=== PATIENT | male | born 1965 | race Caucasian/White ===

== ENCOUNTER 2016-05-08 12:55 | Emergency (ER) | payer SELFPAY ==
[~2016-05-08] VITALS: Ht 172.7 cm; Wt 63.5 kg
[2016-05-08 13:00] VITALS: BP 108/61
== END 2016-05-08 23:23 | disposition left against medical advice (07) ==
LOC: EDBD 12:55 → ER 12:57
DX: S50.821A Blister (nonthermal) of right forearm, initial encounter (principal); R21 Rash and other nonspecific skin eruption; Z53.21 Procedure and treatment not carried out due to patient leaving prior to being seen by health care provider; X58.XXXA Exposure to other specified factors, initial encounter; Y93.9 Activity, unspecified; Y99.8 Other external cause status; Y92.89 Other specified places as the place of occurrence of the external cause

== ENCOUNTER 2022-04-28 01:44 | Inpatient (IN) | payer MEDICAID ==
[~2022-04-28] VITALS: Ht 175.3 cm; Wt 63.5 kg
[2022-04-28] MEDS ORDERED: OCTREOTIDE ACETATE 100 MCG in SODIUM CHL 0.9% 50 ML IV ONE (01:45)
[2022-04-28] MEDS ORDERED: SODIUM CHLORIDE 0.9% 1,000 ML IV ONE (01:45)
[2022-04-28] MEDS ORDERED: METOCLOPRAMIDE HCL 5MG/ml INJ 2ml VIAL IV ONE (01:45)
[2022-04-28] MEDS ORDERED: PANTOPRAZOLE 80 MG in SODIUM CHL 0.9% 100 ML IV ONE (01:45)
[2022-04-28] MEDS ORDERED: PANTOPRAZOLE 40mg/50ML NS AE 50 ML IV ONE (01:45)
[2022-04-28] MEDS ORDERED: ONDANSETRON HCL 4 MG/2 ML VIAL IV ONE (01:45)
[2022-04-28 02:33] LABS: Basophils # (auto) 0.1 10 ^3/uL (0-0.2); Basophils % (auto) 1.2 % (0.0-2.0); Eosinophils # (auto) 0.2 10 ^3/uL (0-0.8); Eosinophils % (auto) 2.6 % (0.0-7.0); Hematocrit 35.6 % (41.0-53.0); Hemoglobin 12.1 g/dL (13.5-17.5); Lymphocytes # (auto) 3.1 10 ^3/uL (0.4-5.4); Lymphocytes % (auto) 44.8 % (10.0-50.0); Mean Corpuscular Hemoglobin 30.9 pg (28.0-32.0); Monocytes % (auto) 14.2 % (0.0-12.0); Neutrophils # (auto) 2.6 10 ^3/uL (1.6-8.6); Neutrophils % (auto) 37.2 % (37.0-80.0); Red Blood Cells 3.92 10^6/uL (4.5-5.90); Red Cell Distribution Width 13.9 % (11.8-14.3); White Blood Cell 6.9 10^3/uL (4.4-10.8)
[2022-04-28] MEDS ORDERED: PANTOPRAZOLE 40 MG/10 ML VIAL INJ IV ONE (02:35)
[2022-04-28] MEDS ORDERED: OCTREOTIDE ACETATE 100 MCG/ML VL ONE (02:40)
[2022-04-28] MEDS ORDERED: OCTREOTIDE ACETATE 500 MCG/ML VL ONE (02:41)
[2022-04-28 02:51] LABS: Alanine Aminotransferase 90 U/L (16-61); Anion Gap 8 (5-15); Aspartate Aminotransferase 80 U/L (15-37); BUN/Creatinine Ratio 52.1; Blood Alcohol < 3.0 mg/dL (0-5); Blood Urea Nitrogen 38 mg/dL (7-18); Calcium 8.2 mg/dL (8.5-10.1); Carbon Dioxide 31 mmol/L (21-32); Chloride 98 mmol/L (98-107); GFR African American 143 mL/min; GFR Non-African American 119 mL/min; Glucose 98 mg/dL (74-106); Magnesium 1.7 mg/dL (1.6-2.6); Potassium 3.6 mmol/L (3.5-5.1); Sodium 137 mmol/L (136-145)
[2022-04-28 02:54] LABS: Alkaline Phosphatase 53 U/L (45-117); Bilirubin, Total 0.6 mg/dL (0.2-1.0); INR 1.02 (0.9-1.15); Partial Thromboplastin Time 24.9 sec (24.6-33.4); Total Protein 6.1 g/dL (6.4-8.2)
[2022-04-28] MEDS: OCTREOTIDE ACETATE 500 MCG in SODIUM CHL 0.9% 99 ML IV SCH ×2 (02:59→11:45)
[2022-04-28] MEDS ORDERED: IOHEXOL 350 MG/ML 100ML IJ ONE (03:14)
[2022-04-28] MEDS ORDERED: cefTRIAXone 1GM/50ML D5W 50 ML IV ONE (05:00)
[2022-04-28] MEDS ORDERED: SODIUM CHLORIDE 0.9% 1,000 ML IV SCH (05:45)
[2022-04-28] MEDS ORDERED: ACETAMINOPHEN 325 MG TAB PO PRN (05:45)
[2022-04-28] MEDS ORDERED: MORPHINE SULFATE INJ 2 MG/ml SYRG IV PRN (05:45)
[2022-04-28] MEDS ORDERED: TEMAZEPAM 15 MG CAP PO PRN (05:45)
[2022-04-28] MEDS ORDERED: MAALOX PLUS or MAALOX 30 ML PO PRN (05:45)
[2022-04-28] MEDS ORDERED: ONDANSETRON HCL 4 MG/2 ML VIAL IV PRN (05:45)
[2022-04-28] MEDS ORDERED: HYDROcodone-ACET 5/325MG TAB PO PRN (05:45)
[2022-04-28] MEDS ORDERED: DOCUSATE SOD 100 MG CAP PO PRN (05:45)
[2022-04-28] MEDS ORDERED: LORazepam 0.5 MG TAB PO PRN (05:45)
[2022-04-28 07:53] LABS: BUN/Creatinine Ratio 42.5; Potassium 3.9 mmol/L (3.5-5.1)
[2022-04-28 07:58] LABS: Basophils # (auto) 0.1 10 ^3/uL (0-0.2); Eosinophils # (auto) 0.1 10 ^3/uL (0-0.8); Eosinophils % (auto) 1.2 % (0.0-7.0); Hematocrit 33.9 % (41.0-53.0); Hemoglobin 11.7 g/dL (13.5-17.5); Lymphocytes # (auto) 3.1 10 ^3/uL (0.4-5.4); Lymphocytes % (auto) 39.1 % (10.0-50.0); Mean Corpuscular Hemoglobin 31.1 pg (28.0-32.0); Mean Corpuscular Hgb Conc. 34.4 g/dL (32.0-36.0); Mean Corpuscular Volume 90.3 fL (80.0-100.0); Monocytes # (auto) 0.7 10 ^3/uL (0-1.3); Monocytes % (auto) 9.2 % (0.0-12.0); Neutrophils # (auto) 3.9 10 ^3/uL (1.6-8.6); Neutrophils % (auto) 49.5 % (37.0-80.0); Nucleated Red Blood Cells % 0.1 %; Red Blood Cells 3.76 10^6/uL (4.5-5.90); Red Cell Distribution Width 13.8 % (11.8-14.3); White Blood Cell 7.9 10^3/uL (4.4-10.8)
[2022-04-28 09:02] LABS: Urine Bacteria NONE SEEN /hpf (None Seen); Urine Blood Negative /uL (Negative); Urine WBC <1 /hpf (0 - 3)
[2022-04-28 09:07] LABS: Urine Specific Gravity > 1.050 (1.001-1.035)
[2022-04-28] MEDS ORDERED: PANTOPRAZOLE 40 MG/10 ML VIAL INJ IV SCH (10:00)
[2022-04-28 10:30] VITALS: BP 126/88
[2022-04-29] MEDS ORDERED: cefTRIAXone 1GM/50ML D5W 50 ML IV SCH (06:00)
== END 2022-04-28 12:09 | disposition left against medical advice (07) | DRG 253 ==
LOC: EDBD 01:44 → ER 01:44 → EDUNIT# 01:44 → TELE 05:49
PROVIDERS: ADMIT Hospitalist; ATTEND Student in an Organized Health Care Education/Training Program
DX: K92.2 Gastrointestinal hemorrhage, unspecified (principal); B19.20 Unspecified viral hepatitis C without hepatic coma; D64.9 Anemia, unspecified; F17.210 Nicotine dependence, cigarettes, uncomplicated; Z53.29 Procedure and treatment not carried out because of patient's decision for other reasons; K21.9 Gastro-esophageal reflux disease without esophagitis; R00.0 Tachycardia, unspecified; R79.89 Other specified abnormal findings of blood chemistry; Z86.19 Personal history of other infectious and parasitic diseases
CPT/HCPCS: 36415; 71045; 71260; 74177; 80048; 80053; 80320; 81001; 83735; 84484; 85025; 85610; 85730; 86850; 86900; 86901; 93005; 96365; 96366; 96367; 96368; 96375; 99291; C9113; G0378; J0696; J2405

== ENCOUNTER 2023-10-22 09:36 | Emergency (ER) | payer MEDICAID ==
[~2023-10-22] VITALS: Ht 175.3 cm; Wt 72.7 kg
[2023-10-22 09:36] VITALS: O2SAT 98
[2023-10-22 10:04] VITALS: BP 140/78; PULSE 118; RESP 14; TEMP 97
[2023-10-22] MEDS ORDERED: BUPR8MIS SL (10:04)
== END 2023-10-22 10:12 | disposition home or self-care (01) ==
LOC: ER 09:36 → EDBD 09:36 → ER 10:12
DX: Z76.0 Encounter for issue of repeat prescription (principal); F17.210 Nicotine dependence, cigarettes, uncomplicated; F19.10 Other psychoactive substance abuse, uncomplicated

== ENCOUNTER 2023-10-23 17:28 | Inpatient (IN) | payer MEDICAID ==
[~2023-10-23] VITALS: Ht 175.3 cm; Wt 68.6 kg
[2023-10-23] MEDS: POTASSIUM CHL 20MEQ/100ML 100 ML IV SCH (05:45)
[~2023-10-23 17:28] MED LIST: BUPR8MIS SL
[2023-10-23 18:24] LABS: Basophils # (auto) 0 10 ^3/uL (0-0.2); Basophils % (auto) 0.4 % (0.0-2.0); Eosinophils # (auto) 0.1 10 ^3/uL (0-0.8); Eosinophils % (auto) 0.7 % (0.0-7.0); Hematocrit 44.3 % (41.0-53.0); Hemoglobin 15.3 g/dL (13.5-17.5); Lymphocytes # (auto) 2.6 10 ^3/uL (0.4-5.4); Lymphocytes % (auto) 28.7 % (10.0-50.0); Mean Corpuscular Hemoglobin 29.4 pg (28.0-32.0); Mean Corpuscular Hgb Conc. 34.4 g/dL (32.0-36.0); Mean Corpuscular Volume 85.3 fL (80.0-100.0); Monocytes # (auto) 0.9 10 ^3/uL (0-1.3); Monocytes % (auto) 10.2 % (0.0-12.0); Neutrophils # (auto) 5.5 10 ^3/uL (1.6-8.6); Nucleated Red Blood Cells % 0.2 %; Red Blood Cells 5.19 10^6/uL (4.5-5.90); Red Cell Distribution Width 14.8 % (11.8-14.3); White Blood Cell 9.2 10^3/uL (4.4-10.8)
[2023-10-23 18:41] LABS: Alanine Aminotransferase 31 U/L (7-40); Albumin 4.2 g/dL (3.2-4.8); Alkaline Phosphatase 145 U/L (46-116); Anion Gap 17 (5-15); Aspartate Aminotransferase 49 U/L (13-40); BUN/Creatinine Ratio 11.9 (10.0-20.0); Bilirubin, Total 1.3 mg/dL (0.2-1.0); Blood Urea Nitrogen 12 mg/dL (9-23); Carbon Dioxide 21 mmol/L (20-30); Chloride 103 mmol/L (98-107); Glucose 164 mg/dL (74-106); Sodium 141 mmol/L (136-145); Total Protein 7.2 g/dL (5.7-8.2)
[2023-10-23 18:51] LABS: Potassium 2.5 mmol/L (3.5-5.1)
[2023-10-23] MEDS: BUPRENORPHINE -NALOXONE 8-2mg SL TAB SL ONE ×2 (19:10→19:11)
[2023-10-23 19:11] VITALS: PULSE 127; RESP 26; O2SAT 98
[2023-10-23 19:34] LABS: Urine Bacteria None Seen /hpf (None Seen)
[2023-10-23 20:01] LABS: Urine Blood Negative /uL (Negative); Urine Clarity Clear (Clear); Urine Color Yellow (Yellow); Urine Protein, UAD TRACE (Negative); Urine Urobilinogen Normal (Negative); Urine WBC 1 /hpf (0 - 3)
[2023-10-23 20:04] VITALS: PULSE 127; RESP 26; O2SAT 98
[2023-10-23 20:06] LABS: Amphetamine Screen, Urine Pos (NEGATIVE); Barbiturate Scree,Urine Neg (NEGATIVE); Benzodiazephine Screen, Urine Neg (NEGATIVE); Cocaine Screen, Urine Neg (NEGATIVE); Opiate Scree,Urine Neg (NEGATIVE)
[2023-10-23 20:07] LABS: Cannabinoid Screen, Urine Neg (NEGATIVE); Phencyclidine Screen, Urine Neg (NEGATIVE)
[2023-10-23] MEDS ORDERED: DOCUSATE SOD 100 MG CAP PO PRN (21:30)
[2023-10-23] MEDS ORDERED: IBUPROFEN 600 MG TAB PO PRN (21:45)
[2023-10-23] MEDS: SODIUM CHLOR 0.9% PF (SALINE LOCK) 10ML VIAL/SYR IV SCH (22:00)
[2023-10-23 22:16] VITALS: PULSE 127; RESP 26; O2SAT 98
[2023-10-23] MEDS ORDERED: MORPHINE SULFATE INJ 2 MG/ml SYRG IV PRN (23:00)
[2023-10-23] MEDS ORDERED: NITROGLYCERIN 0.4 MG SL TAB SL PRN (23:00)
[2023-10-24] VITALS (12 sets, daily range): BP systolic 142–159; BP diastolic 86–102; PULSE 82–127; RESP 16–26; TEMP 97.6–98.3; O2SAT 94–100
[2023-10-24] MEDS: ONDANSETRON HCL 4 MG/2 ML VIAL IV PRN (02:37)
[2023-10-24] MEDS ORDERED: POM PO (02:50)
[2023-10-24 06:16] LABS: Basophils # (auto) 0 10 ^3/uL (0-0.2); Basophils % (auto) 0.1 % (0.0-2.0); Eosinophils # (auto) 0 10 ^3/uL (0-0.8); Eosinophils % (auto) 0.2 % (0.0-7.0); Hematocrit 41.4 % (41.0-53.0); Hemoglobin 13.9 g/dL (13.5-17.5); Lymphocytes # (auto) 1.6 10 ^3/uL (0.4-5.4); Lymphocytes % (auto) 13.4 % (10.0-50.0); Mean Corpuscular Hemoglobin 28.8 pg (28.0-32.0); Mean Corpuscular Hgb Conc. 33.5 g/dL (32.0-36.0); Mean Corpuscular Volume 86.1 fL (80.0-100.0); Monocytes # (auto) 0.8 10 ^3/uL (0-1.3); Monocytes % (auto) 6.7 % (0.0-12.0); Neutrophils # (auto) 9.2 10 ^3/uL (1.6-8.6); Neutrophils % (auto) 79.6 % (37.0-80.0); Nucleated Red Blood Cells % 0.1 %; Red Blood Cells 4.81 10^6/uL (4.5-5.90); Red Cell Distribution Width 14.8 % (11.8-14.3); White Blood Cell 11.6 10^3/uL (4.4-10.8)
[2023-10-24 06:45] LABS: Alanine Aminotransferase 30 U/L (7-40); Albumin 4.1 g/dL (3.2-4.8); Alkaline Phosphatase 138 U/L (46-116); Anion Gap 11 (5-15); Aspartate Aminotransferase 45 U/L (13-40); BUN/Creatinine Ratio 14.7 (10.0-20.0); Bilirubin, Total 1.3 mg/dL (0.2-1.0); Blood Urea Nitrogen 10 mg/dL (9-23); Calcium 8.4 mg/dL (8.5-10.1); Carbon Dioxide 28 mmol/L (20-30); Chloride 102 mmol/L (98-107); Glucose 112 mg/dL (74-106); Potassium 3.1 mmol/L (3.5-5.1); Sodium 141 mmol/L (136-145); Total Protein 6.9 g/dL (5.7-8.2)
[2023-10-24] MEDS: THIAMINE 100mg/ml INJ (200mg/2ml VIAL) IV SCH (08:08)
[2023-10-24] MEDS: POTASSIUM CHL 20MEQ/100ML 100 ML IV SCH (08:08)
[2023-10-24] MEDS: MULTIPLE VITAMIN TAB PO SCH (08:08)
[2023-10-24] MEDS: SODIUM CHLORIDE 0.9% 1,000 ML IV SCH (11:15)
[2023-10-24 11:32] LABS: Lipase 64 U/L (12-53)
[2023-10-24 11:34] LABS: Amylase 84 U/L (30-118)
[2023-10-24] MEDS: FOLIC ACID 1 MG in D5W 5% 50 ML INJ SCH (11:49)
[2023-10-24 11:54] LABS: Erythrocyte Sedimentation Rate 4 mm/hr (0-20)
[2023-10-24] MEDS: SOD CHL 0.9%/ KCL 40MEQ 1,000 ML IV SCH (14:23)
[2023-10-24] MEDS: hydrALAZINE HCL 20 MG/ML VL IV ONE (21:05)
[2023-10-25] VITALS (8 sets, daily range): BP systolic 132–149; BP diastolic 86–94; PULSE 81–111; RESP 16–20; TEMP 98–98.3; O2SAT 94–99
[2023-10-25 06:54] LABS: Basophils # (auto) 0 10 ^3/uL (0-0.2); Basophils % (auto) 0.2 % (0.0-2.0); Eosinophils # (auto) 0.2 10 ^3/uL (0-0.8); Eosinophils % (auto) 2.3 % (0.0-7.0); Hemoglobin 14.2 g/dL (13.5-17.5); Lymphocytes # (auto) 1.7 10 ^3/uL (0.4-5.4); Lymphocytes % (auto) 17.6 % (10.0-50.0); Mean Corpuscular Hemoglobin 29.7 pg (28.0-32.0); Mean Corpuscular Hgb Conc. 33.7 g/dL (32.0-36.0); Monocytes # (auto) 0.8 10 ^3/uL (0-1.3); Monocytes % (auto) 8.5 % (0.0-12.0); Neutrophils # (auto) 6.8 10 ^3/uL (1.6-8.6); Neutrophils % (auto) 71.4 % (37.0-80.0); Nucleated Red Blood Cells % 0.1 %; Red Blood Cells 4.77 10^6/uL (4.5-5.90); Red Cell Distribution Width 15.4 % (11.8-14.3); White Blood Cell 9.5 10^3/uL (4.4-10.8)
[2023-10-25 07:12] LABS: Alanine Aminotransferase 27 U/L (7-40); Albumin 3.4 g/dL (3.2-4.8); Alkaline Phosphatase 117 U/L (46-116); Amylase 105 U/L (30-118); Anion Gap 8 (5-15); Aspartate Aminotransferase 38 U/L (13-40); Calcium 8.6 mg/dL (8.7-10.4); Carbon Dioxide 26 mmol/L (20-30); Chloride 100 mmol/L (98-107); Glucose 84 mg/dL (74-106); Lipase 119 U/L (12-53); Potassium 3.6 mmol/L (3.5-5.1)
[2023-10-25 07:13] LABS: Bilirubin, Total 1.5 mg/dL (0.2-1.0); Total Protein 6.3 g/dL (5.7-8.2)
[2023-10-25 07:15] LABS: BUN/Creatinine Ratio 8.8 (10.0-20.0); Blood Urea Nitrogen < 5 mg/dL (9-23); Sodium 134 mmol/L (136-145)
[2023-10-25] MEDS: THIAMINE HCL 100 MG TAB PO ONE (11:00)
[2023-10-25] MEDS ORDERED: hydrALAZINE HCL 20 MG/ML VL IV PRN (11:00)
[2023-10-25] MEDS: FOLIC ACID 1 MG TAB PO ONE (11:00)
[2023-10-25] MEDS: FAMOTIDINE 20 MG TAB PO ONE (13:38)
[2023-10-25] MEDS: FAMOTIDINE 20 MG TAB PO SCH (20:23)
[2023-10-25] MEDS: LORazepam 2MG/ML-1ML VIAL IV PRN (20:33)
[2023-10-26] VITALS (11 sets, daily range): BP systolic 134–153; BP diastolic 78–96; PULSE 77–119; RESP 16–19; TEMP 97.8–98.7; O2SAT 96–100
[2023-10-26 06:19] LABS: Alanine Aminotransferase 27 U/L (7-40); Albumin 3.5 g/dL (3.2-4.8); Alkaline Phosphatase 113 U/L (46-116); Anion Gap 5 (5-15); Aspartate Aminotransferase 37 U/L (13-40); Bilirubin, Total 1.3 mg/dL (0.2-1.0); Calcium 8.7 mg/dL (8.5-10.1); Carbon Dioxide 28 mmol/L (20-30); Chloride 103 mmol/L (98-107); Glucose 90 mg/dL (74-106); Magnesium 1.7 mg/dL (1.6-2.6); Potassium 3.6 mmol/L (3.5-5.1); Sodium 136 mmol/L (136-145); Total Protein 5.8 g/dL (5.7-8.2)
[2023-10-26 06:31] LABS: BUN/Creatinine Ratio 9.3 (10.0-20.0); Blood Urea Nitrogen < 5 mg/dL (9-23)
[2023-10-26 08:06] LABS: PSA Free 0.04 ng/mL; Prostate Specific Antigen 0.5 ng/mL (0.0-4.0)
[2023-10-26] MEDS ORDERED: FLUMAZENIL 0.1 MG/ML INJ 10ML MDV IV ONE (08:14)
[2023-10-26] MEDS ORDERED: NALOXONE HCL 0.4 MG/ML VIAL ONE (08:14)
[2023-10-26] MEDS: PANTOPRAZOLE 40 MG/10 ML VIAL INJ IV SCH (09:51)
[2023-10-26] MEDS: THIAMINE HCL 100 MG TAB PO SCH (09:52)
[2023-10-26] MEDS: FOLIC ACID 1 MG TAB PO SCH (09:52)
[2023-10-26] MEDS: BUPRENORPHINE -NALOXONE 8-2mg SL TAB SL SCH (10:00)
[2023-10-26] MEDS ORDERED: PROPOFOL 10 MG/ML 20 ML IV ONE (11:38)
[2023-10-26] MEDS ORDERED: fentaNYL CITRATE 100 MCG/2 ML VL ONE (11:38)
[2023-10-26] MEDS ORDERED: MIDAZOLAM HCL 2MG/2ML 2ml VIAL (1mg/ml) ONE (11:38)
[2023-10-26] MEDS: ONDANSETRON HCL 4 MG/2 ML VIAL IV ONE (12:00)
[2023-10-26] MEDS: SUCRALFATE 1 GM/10 ML ORAL SUSP GT SCH (16:35)
[2023-10-26] MEDS: PANTOPRAZOLE 40 MG TAB PO SCH (16:35)
[2023-10-26] MEDS: TEMAZEPAM 15 MG CAP PO ONE (23:25)
[2023-10-27 01:00] VITALS: BP 149/95; PULSE 105; RESP 18; TEMP 98.6; O2SAT 97
[2023-10-27 05:00] VITALS: BP 128/91; PULSE 104; RESP 18; TEMP 98.5; O2SAT 97
[2023-10-27 06:18] LABS: Anion Gap 6 (5-15); Carbon Dioxide 25 mmol/L (20-30); Chloride 106 mmol/L (98-107); Potassium 4.1 mmol/L (3.5-5.1); Sodium 137 mmol/L (136-145)
[2023-10-27 06:19] LABS: Calcium 8.8 mg/dL (8.5-10.1)
[2023-10-27 06:23] LABS: Glucose 109 mg/dL (74-106)
[2023-10-27 06:24] LABS: Magnesium 1.6 mg/dL (1.6-2.6)
[2023-10-27 06:29] LABS: BUN/Creatinine Ratio 9.3 (10.0-20.0); Blood Urea Nitrogen < 5 mg/dL (9-23)
[2023-10-27 08:00] VITALS: PULSE 73; PULSE 96; RESP 19; O2SAT 100
[2023-10-27 08:50] VITALS: BP 153/98; PULSE 93; RESP 19; TEMP 97.8; O2SAT 100
[2023-10-27] MEDS ORDERED: BUPR8MIS SL (11:42)
[2023-10-27 12:50] VITALS: BP 140/98; PULSE 95; RESP 19; TEMP 98; O2SAT 97
[2023-10-27] MEDS ORDERED: PANT40TA2 PO (13:50)
[2023-10-27] MEDS ORDERED: SUCR1TAB31 OR (13:50)
[2023-10-27 15:38] VITALS: BP 140/98; PULSE 95; RESP 19; TEMP 98; O2SAT 97
[2023-10-28 11:13] LABS: Hepatitis A Total Antibody Positive (Negative)
[2023-10-28 11:14] LABS: Hepatitis B Surface Antibody Positive (Negative); Hepatitis B Surface Antigen Negative (Negative)
[2023-10-28 11:20] LABS: Hepatitis B Core Total AB Positive (Negative); Hepatitis C Antibody Reactive (Negative)
== END 2023-10-27 16:40 | disposition home or self-care (01) | DRG 241 ==
LOC: EDBD 17:28 → ER 17:28 → TELE 23:00 → TELE-CENTR 10-24 02:17
PROVIDERS: ADMIT Nurse Practitioner Family; ATTEND Internal Medicine Geriatric Medicine
PROC: 0DB68ZX Excision of Stomach, Via Natural or Artificial Opening Endoscopic, Diagnostic (ICD-10-PCS; 2023-10-26)
PROC: 0DB38ZX Excision of Lower Esophagus, Via Natural or Artificial Opening Endoscopic, Diagnostic (ICD-10-PCS; 2023-10-26)
PROC: 0DB98ZX Excision of Duodenum, Via Natural or Artificial Opening Endoscopic, Diagnostic (ICD-10-PCS; principal; 2023-10-26 11:39)
DX: K29.70 Gastritis, unspecified, without bleeding (principal); K70.9 Alcoholic liver disease, unspecified; E87.6 Hypokalemia; K44.9 Diaphragmatic hernia without obstruction or gangrene; K22.70 Barrett's esophagus without dysplasia; F11.23 Opioid dependence with withdrawal; I10 Essential (primary) hypertension; R33.9 Retention of urine, unspecified; F10.239 Alcohol dependence with withdrawal, unspecified; F15.90 Other stimulant use, unspecified, uncomplicated; K21.9 Gastro-esophageal reflux disease without esophagitis; N20.0 Calculus of kidney; K31.89 Other diseases of stomach and duodenum; F10.229 Alcohol dependence with intoxication, unspecified; K76.0 Fatty (change of) liver, not elsewhere classified; F17.210 Nicotine dependence, cigarettes, uncomplicated; R73.9 Hyperglycemia, unspecified; Y90.8 Blood alcohol level of 240 mg/100 ml or more
CPT/HCPCS: 36415; 71045; 74176; 76705; 80048; 80053; 80307; 80320; 81001; 82150; 83690; 83735; 84154; 84484; 85025; 85652; 86141; 86704; 86706; 86708; 86803; 87340; 93005; 99291; C9113; G0378; J2250; J2405; J2704; J3480; J7060

== ENCOUNTER 2023-11-06 11:54 | Emergency (ER) | payer MEDICAID ==
[~2023-11-06] VITALS: Ht 175.3 cm; Wt 72.7 kg
[~2023-11-06 11:54] MED LIST changes: +BUPR1SUB35 SL; +PANT40TA2 PO; +POM PO; +SUCR1TAB31 OR
[2023-11-06 12:02] VITALS: PULSE 121; RESP 16; O2SAT 95
[2023-11-06] MEDS: NALOXONE HCL 1MG/ML 2ML SYRINGE IV ONE (12:17)
[2023-11-06] MEDS: SODIUM CHLORIDE 0.9% 1,000 ML IVB ONE (12:17)
[2023-11-06] MEDS: NALOXONE HCL 1MG/ML 2ML SYRINGE ONE (12:18)
[2023-11-06 12:53] LABS: Basophils # (auto) 0 10 ^3/uL (0-0.2); Basophils % (auto) 0.5 % (0.0-2.0); Eosinophils # (auto) 0 10 ^3/uL (0-0.8); Eosinophils % (auto) 0.3 % (0.0-7.0); Hematocrit 46.4 % (41.0-53.0); Hemoglobin 16.1 g/dL (13.5-17.5); Lymphocytes # (auto) 1.8 10 ^3/uL (0.4-5.4); Mean Corpuscular Hemoglobin 30.4 pg (28.0-32.0); Mean Corpuscular Hgb Conc. 34.7 g/dL (32.0-36.0); Mean Corpuscular Volume 87.4 fL (80.0-100.0); Monocytes # (auto) 0.5 10 ^3/uL (0-1.3); Monocytes % (auto) 6.8 % (0.0-12.0); Neutrophils # (auto) 5.5 10 ^3/uL (1.6-8.6); Neutrophils % (auto) 69.4 % (37.0-80.0); Nucleated Red Blood Cells % 0.1 %; Red Cell Distribution Width 16.3 % (11.8-14.3)
[2023-11-06 13:12] LABS: Acetaminophen < 2.0 UG/ML (10.0-20.0); Alanine Aminotransferase 27 U/L (7-40); Albumin 4.3 g/dL (3.2-4.8); Alkaline Phosphatase 134 U/L (46-116); Anion Gap 12 (5-15); Aspartate Aminotransferase 32 U/L (13-40); Calcium 9.2 mg/dL (8.7-10.4); Carbon Dioxide 23 mmol/L (20-30); Chloride 107 mmol/L (98-107); Glucose 134 mg/dL (74-106); Magnesium 1.8 mg/dL (1.6-2.6); Potassium 2.6 mmol/L (3.5-5.1); Sodium 142 mmol/L (136-145)
[2023-11-06 13:13] LABS: BUN/Creatinine Ratio 5.6 (10.0-20.0); Bilirubin, Total 0.7 mg/dL (0.2-1.0); Blood Urea Nitrogen < 5 mg/dL (9-23); Salicylate < 3.0 mg/dL (2.8-20.0); Total Protein 7.3 g/dL (5.7-8.2)
[2023-11-06] MEDS: POTASSIUM EFFERVESENT TAB 25 MEQ PO ONE (13:39)
[2023-11-06 14:39] LABS: Blood Alcohol 216.1 mg/dL (<10)
[2023-11-06] MEDS: ONDANSETRON HCL 4 MG/2 ML VIAL IV ONE (14:51)
[2023-11-06 15:00] LABS: Urine Bacteria None Seen /hpf (None Seen)
[2023-11-06 15:13] LABS: Urine Blood Negative /uL (Negative); Urine Clarity Clear (Clear); Urine Color Light-Yellow (Yellow); Urine Protein, UAD Negative (Negative); Urine Specific Gravity 1.006 (1.001-1.035); Urine Urobilinogen Normal (Negative); Urine WBC 1 /hpf (0 - 3); Urine pH 6.5 (5.0-9.0)
[2023-11-06 15:26] LABS: Amphetamine Screen, Urine Pos (NEGATIVE); Barbiturate Scree,Urine Neg (NEGATIVE); Benzodiazephine Screen, Urine Neg (NEGATIVE); Cannabinoid Screen, Urine Neg (NEGATIVE); Cocaine Screen, Urine Neg (NEGATIVE); Opiate Scree,Urine Neg (NEGATIVE); Phencyclidine Screen, Urine Neg (NEGATIVE)
[2023-11-06 19:30] VITALS: BP 150/101; PULSE 99; RESP 15; TEMP 98.9; O2SAT 95
== END 2023-11-06 20:05 | disposition left against medical advice (07) ==
LOC: ER 11:54 → EDBD 11:54 → ER 20:05
DX: T40.411A Poisoning by fentanyl or fentanyl analogs, accidental (unintentional), initial encounter (principal); R40.4 Transient alteration of awareness; F10.10 Alcohol abuse, uncomplicated; F15.10 Other stimulant abuse, uncomplicated; E87.6 Hypokalemia; Y90.7 Blood alcohol level of 200-239 mg/100 ml; Y92.89 Other specified places as the place of occurrence of the external cause
CPT/HCPCS: 36415; 71045; 80053; 80307; 80320; 80329; 81001; 83735; 85025; 93005; 96361; 96374; 96375; 99285; J2310; J2405; J7030

== ENCOUNTER 2024-09-15 15:30 | Emergency (ER) | payer MEDICAID ==
[~2024-09-15] VITALS: Ht 182.9 cm; Wt 82.0 kg
[2024-09-15 15:39] VITALS: TEMP 97.8
[2024-09-15 16:02] VITALS: PULSE 100; RESP 7; O2SAT 99
--- NOTE | 2024-09-15 16:41 | ED.PDOC ---
History of Present Illness HPI Comments 58 year old male presents to the ED via EMS with a chief complaint of overdose onset today (09/15/24). Per EMS, patient was found outside a restaurant, unresponsive. He was given 2 mg Narcan by fire, placed on 10 L NRM with O2 sat 95%. Per EMS, possible Fentanyl overdose. Patient denies drug use states he was only consuming ETOH, does not recall events. No other symptoms or modifying factors present at this time. Chief Complaint: Shortness of Breath Time Seen by MD: 16:32 Primary Care Provider: UNKNOWN Reviewed Notes: Medications, Allergies Allergies: Coded Allergies: NO KNOWN ALLERGIES (Unverified , 09/01/11) Home Meds Active Scripts Buprenorphine HCl-Naloxone HCl (Buprenorphine Hydrochlori 8-2 mg) 1 Sub Sub, 1 SUB SL DAILY for 30 Days, #30 STRIPS 0 Refills Prov:LADI ESPARZA MD 11/01/23 Sucralfate (CARAFATE) 1 Gm Tab, 1 GM OR QIDACHS for 30 Days, #120 TAB Prov:LADI ESPARZA MD 10/27/23 Pantoprazole Sodium Sesquihydr (Protonix) 40 Mg Tab, 40 MG PO DAILY, #30 TAB Prov:LADI ESPARZA MD 10/27/23 Buprenorphine Hcl-Naloxone Hcl (Suboxone) 1 Mis Mis, 1 STRIP SL DAILY, #7 STRIP Prov:MAREN BURCIAGA 10/22/23 Reported Medications Patients Own Medication (PATIENTS OWN MEDICATION) ., 12 MG PO PTS OWN MED-OBTAIN FROM PT AND SEND TO RX DRUG: FREQ: RX# EXP: DATE DISP: TECH: [facility]: 10/24/23 Information Source: Patient, Emergency Med Personnel Mode of Arrival: EMS Severity: Moderate Timing: Hours Duration: Since onset Prehospital treatment: Oxygen, Other (Narcan 2mg ) Past Medical History PAST MEDICAL HISTORY: Liver Surgical History: Denies all surgeries Family History Family History: Reviewed,noncontributory to illness Social History Smoker: Non-Smoker Alcohol: Heavy Drugs: Heroin, Other Lives In: Home Constitutional: reports: others (overdose); denies: chills, diaphoresis, fatigue, fever, malaise, sweats, weakness EENTM: denies: blurred vision, double vision, ear bleeding, ear discharge, ear drainage, ear pain, ear ringing, eye pain, eye redness, hearing loss, mouth pain, mouth swelling, nasal discharge, nose bleeding, nose congestion, nose pain, photophobia, tearing, throat pain, throat swelling, voice changes, others Respiratory: denies: cough, hemoptysis, orthopnea, SOB at rest, shortness of breath, SOB with excertion, stridor, wheezing, others Cardiovascular: denies: chest pain, dizzy spells, diaphoresis, Dyspnea on exertion, edema, irregular heart beat, left arm pain, lightheadedness, palpitations, PND, syncope, others Gastrointestinal: denies: abdomen distended, abdominal pain, blood streaked bowels, constipated, diarrhea, dysphagia, difficulty swallowing, hematemesis, melena, nausea, poor appetite, poor fluid intake, rectal bleeding, rectal pain, vomiting, others Genitourinary: denies: burning, dysuria, flank pain, frequency, hematuria, incontinence, penile discharge, penile sore, pain, testicle pain, testicle swelling, urgency, others Neurological: denies: dizziness, fainting, headache, left sided numbness, left sided weakness, numbness, paresthesia, pre-existing deficit, right sided numbn ess, right sided weakness, seizure, speech problems, tingling, tremors, weakness, others Musculoskeletal: denies: back pain, gout, joint pain, joint swelling, muscle pain, muscle stiffness, neck pain, others Integumetry: denies: bruises, change in color, change in hair/nails, dryness, laceration, lesions, lumps, rash, wounds, others Allergic/Immunocompromised: denies: Difficulty Healing, Frequent Infections, Hives, Itching, others Hematologic/Lymphatic: denies: anemia, blood clots, easy bleeding, easy bruising, swollen glands, others Endocrine: denies: excessive hunger, excessive sweating, excessive thirst, excessive urination, flushing, intolerance to cold, intolerance to heat, unexplained weight gain, unexplained weight loss, others Psychiatric: reports: others (overdose); denies: anxiety, bipolar disorder, depression, hopeless, panic disorder, schizophrenia, sleepless, suicidal All Other Systems: Reviewed and Negative Physical Exam General Appearance: Normal, Other (disheveled, tired) HEENT: Normal ENT Inspection, Pharynx Normal, TMs Normal Neck: Full Range of Motion, Non-Tender, Normal, Normal Inspection Respiratory: Chest Non-Tender, Lungs Clear, No Accessory Muscle Use, No Respiratory Distress, Normal Breath Sounds Cardiovascular: Tachycardia Breast Exam: Deferred Gastrointestinal: No Organomegaly, Non Tender, No Pulsatile Mass, Normal Bowel Sounds, Soft Genitalia: Deferred Pelvic: Deferred Rectal: Deferred Extremities: No calf tenderness, Normal capillary refill, Normal inspection, Normal range of motion, Non-tender, No pedal edema Musculoskeletal : Apperance: Normal Neurologic: Alert, doctor of audiology II-XII nml as Tested, No Motor Deficits, Normal Affect, Normal Mood, No Sensory Deficits Cerebellar Function: Normal Reflexes: Normal Skin: Dry, Normal Color, Warm Lymphatic: No Adenopathy Was a procedure done? Was a procedure done?: No Differential Dx Considerations may include: Overdose X-Ray, Labs, Meds, VS Vital Signs Date Time Temp Pulse Resp B/P (MAP) Pulse Ox O2 Delivery O2 Flow Rate FiO2 09/15/24 16:29 99 09/15/24 16:02 100 7 105/68 (80) 99 09/15/24 16:02 100 7 99 Nasal Cannula* 4 36 09/15/24 15:39 95 Non-Rebreather 10 N/A 09/15/24 15:39 97.8 105 16 103/74 (84) 95 97.8 Lab Test 09/15/24 17:15 Range/Units White Blood Count 9.6 4.4-10.8 10^3/uL Red Blood Count 4.71 4.5-5.90 10^6/uL Hemoglobin 14.7 13.5-17.5 g/dL Hematocrit 44.2 41.0-53.0 % Mean Corpuscular Volume 93.8 80.0-100.0 fL Mean Corpuscular Hemoglobin 31.2 28.0-32.0 pg Mean Corpuscular Hemoglobin Concent 33.2 32.0-36.0 g/dL Red Cell Distribution Width 15.0 H 11.8-14.3 % Platelet Count 353 140-450 10^3/uL Mean Platelet Volume 8.7 6.9-10.8 fL Neutrophils (%) (Auto) 85.5 H 37.0-80.0 % Lymphocytes (%) (Auto) 7.3 L 10.0-50.0 % Monocytes (%) (Auto) 6.3 0.0-12.0 % Eosinophils (%) (Auto) 0.6 0.0-7.0 % Basophils (%) (Auto) 0.3 0.0-2.0 % Neutrophils # (Auto) 8.2 1.6-8.6 10 ^3/uL Lymphocytes # (Auto) 0.7 0.4-5.4 10 ^3/uL Monocytes # (Auto) 0.6 0-1.3 10 ^3/uL Eosinophils # (Auto) 0.1 0-0.8 10 ^3/uL Basophils # (Auto) 0 0-0.2 10 ^3/uL Nucleated Red Blood Cells 0.0 % Sodium Level 145 136-145 mmol/L Potassium Level 3.3 L 3.5-5.1 mmol/L Chloride Level 108 H 98-107 mmol/L Carbon Dioxide Level 24 20-31 mmol/L Anion Gap 13 5-15 Blood Urea Nitrogen 9 9-23 mg/dL Creatinine 0.90 0.700-1.30 mg/dL Glomerular Filtration Rate Calc 100 >90 mL/min BUN/Creatinine Ratio 10.0 10.0-20.0 Serum Glucose 116 H 74-106 mg/dL Lactic Acid Level Pending Calcium Level 9.2 8.7-10.4 mg/dL Time of 1ST Reevaluation: 17:02 Reevaluation 1ST: Unchanged Patient Education/Counseling: Diagnosis, Treatment, Prognosis Family Education/Counseling: No Family Present Departure 1 Departure Time of Disposition: 17:56 (Patient overdose and was resuscitated with Narcan however patient is still requiring nasal cannula to maintain his oxygen saturation. We will admit patient for further workup) Impression: Primary Impression: Acute hypoxic respiratory failure Additional Impression: Opiate overdose Qualified Codes: T40.601A - Poisoning by unspecified narcotics, accidental (unintentional), initial encounter Disposition: 09 ADMITTED INPATIENT Admit to: Med Surg Condition: Serious Critical Care Note Critical Care Time?: No Stability Stability form required: No I personally scribed for SHERRIE CHANDLER MD ([email or web address]) on 09/15/24 at 16:41. Electronically submitted by Roxie Rivera ([email or web address]). SHERRIE CHANDLER MD September 15, 2024 16:41
--- NOTE | 2024-09-15 17:03 | DVH ---
INDICATION: sob TECHNIQUE: Frontal view of the chest. COMPARISON: XY CHEST PORTABLE on DOS: 11/06/23, XY CHEST PORTABLE on DOS: 10/23/23, CXRP on DOS: 2, CHEST PORTABLE on DOS: 04/28/22 FINDINGS: Finding:. The heart and mediastinal contours are grossly unremarkable. There is no evidence of pleur al disease. The lungs are clear. The bony structures of the chest are intact without fracture. IMPRESSION: 1. No evidence of acute disease.
[2024-09-15 17:19] LABS: Basophils # (auto) 0 10 ^3/uL (0-0.2); Basophils % (auto) 0.3 % (0.0-2.0); Eosinophils # (auto) 0.1 10 ^3/uL (0-0.8); Eosinophils % (auto) 0.6 % (0.0-7.0); Hematocrit 44.2 % (41.0-53.0); Hemoglobin 14.7 g/dL (13.5-17.5); Lymphocytes # (auto) 0.7 10 ^3/uL (0.4-5.4); Lymphocytes % (auto) 7.3 % (10.0-50.0); Mean Corpuscular Hemoglobin 31.2 pg (28.0-32.0); Mean Corpuscular Hgb Conc. 33.2 g/dL (32.0-36.0); Mean Corpuscular Volume 93.8 fL (80.0-100.0); Monocytes # (auto) 0.6 10 ^3/uL (0-1.3); Monocytes % (auto) 6.3 % (0.0-12.0); Neutrophils # (auto) 8.2 10 ^3/uL (1.6-8.6); Neutrophils % (auto) 85.5 % (37.0-80.0); Platelet Count (auto) 353 10^3/uL (140-450); Red Blood Cells 4.71 10^6/uL (4.5-5.90); White Blood Cell 9.6 10^3/uL (4.4-10.8)
[2024-09-15 17:30] LABS: Anion Gap 13 (5-15); Calcium 9.2 mg/dL (8.7-10.4); Carbon Dioxide 24 mmol/L (20-31)
[2024-09-15 17:31] LABS: Chloride 108 mmol/L (98-107); Potassium 3.3 mmol/L (3.5-5.1); Sodium 145 mmol/L (136-145)
[2024-09-15 17:35] LABS: Blood Urea Nitrogen 9 mg/dL (9-23); Glucose 116 mg/dL (74-106)
[2024-09-15 18:00] VITALS: BP 140/88; PULSE 100; RESP 14; O2SAT 98
[2024-09-15 18:10] LABS: Lactic Acid w/Reflex 2.6 mmol/L (0.4-2.0)
--- NOTE | 2024-09-15 18:35 | ECG ---
[facility] Test Date: 2024-09-15 Test Time: 16:29:07 Pat Name: LIZZY HATFIELD Department: ED Room: Gender: Management Consultant: ash : [id number] Requested By: SHERRIE CHANDLER Order Number: [id number] Reading MD: [place] Measurements Intervals [place] Rate: 99 P: 64 NH: 141 QRS: 7 QRSD: 84 T: 37 QT: 383 QTc: 492 Interpretive Statements Sinus rhythm Borderline prolonged QT interval Electronically Signed On 09-16-2024 21:04:05 PDT by [place] Please click the below link to view image of tracing.
== END 2024-09-15 18:31 | disposition home or self-care (01) ==
LOC: EDBD 15:30 → ER 15:35
DX: T40.601A Poisoning by unspecified narcotics, accidental (unintentional), initial encounter (principal); J96.01 Acute respiratory failure with hypoxia; Z79.899 Other long term (current) drug therapy; X58.XXXA Exposure to other specified factors, initial encounter; Y93.89 Activity, other specified; Y92.89 Other specified places as the place of occurrence of the external cause; Y99.8 Other external cause status
CPT/HCPCS: 36415; 71045; 80048; 83605; 85025; 87040; 93005